=== PATIENT | male | born 1995 | race Native Hawaiian/Other Pacific Islander ===

== ENCOUNTER 2023-04-15 06:12 | Emergency (ER) | payer OTHER ==
[2023-04-15] MEDS ORDERED: ONDANSETRON 4 MG/2 ML VIAL IVP STA (06:45)
[2023-04-15] MEDS ORDERED: KETOROLAC 30 MG/ML VIAL IVP STA (06:45)
[2023-04-15] MEDS ORDERED: SODIUM CHLORIDE 0.9% 1,000 ML IV STA (06:45)
--- NOTE | 2023-04-15 06:50 | ED Physician Documentation ---
PD HPI URI - Stated complaint Stated Complaint: FEVER/HEAD PX/CHILLS - Chief complaint Chief Complaint: Heent - History obtained from History obtained from: Patient, Family - History of Present Illness Timing - onset: How many days ago (3) Timing duration: Days (3) Timing details: Gradual onset, Still present Associated symptoms: Fever, Chills, Sweats, Nasal congestion, Sore throat, Dry cough Contributing factors: Sick contact Improves by: Rest, Medication Worsened by: Activity, Breathing Similar symptoms before: Has not had sx before Recently seen: Not recently seen - Additional information Additional information: Previously well Allan Morales has developed a fever chills sore throat cough congestion and vomiting. He feels dehydrated he is having shaking chills. He has been sick for about 3 days. He feels dehydrated despite drinking fluids and he has had vomiting . Review of Systems Constitutional: reports: Fever, Chills, Myalgias, Fatigue, Sweats Eyes: denies: Decreased vision Ears: reports: Ear pain. denies: Loss of hearing Nose: reports: Rhinorrhea / runny nose, Congestion Throat: reports: Sore throat Respiratory: reports: Cough GI: reports: Nausea, Vomiting. denies: Abdominal Pain, Constipation, Diarrhea : denies: Dysuria, Frequency Skin: denies: Rash PD PAST MEDICAL HISTORY - Allergies Allergies/Adverse Reactions: Allergies Allergy/AdvReac Type Severity Reaction Status Date / Time No Known Drug Allergies Allergy Verified 04/15/23 06:21 PD ED PE NORMAL - Vitals Vital signs reviewed: Yes (normal) - General General: Alert and oriented X 3, No acute distress, Well developed/nourished, Other (flush appearing young man) - HEENT HEENT: Atraumatic, PERRL, EOMI, Other (Cerumen impaction bilaterally pharynx is with 2+ cryptic tonsils significant exudate on the right foul smell) - Neck Neck: Supple, no meningeal sign, No bony TTP - Cardiac Cardiac: RRR, No murmur - Respiratory Respiratory: No respiratory distress, Clear bilaterally - Abdomen Abdomen: Soft, Non tender - Back Back: No CVA TTP, No spinal TTP - Derm Derm: Normal color, Warm and dry, No rash - Extremities Extremities: No deformity, No edema - Neuro Neuro: Alert and oriented X 3, 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, No motor deficit, No sensory deficit, Normal speech Eye Opening: Spontaneous Motor: Obeys Commands Verbal: Oriented GCS Score: 15 - Psych Psych: Normal mood, Normal affect Results - Vitals Vitals: Vital Signs - 24 hr 04/15/23 06:17 Temperature 37.3 C Heart Rate 94 Respiratory 17 Rate Blood Pressure 134/68 H O2 Saturation 93 Oxygen O2 Source Room air Procedures - IVC sono (time) [id number] Bedside IVC sono: IVC measures (cm) (1.01), IVC collapsed c insp (cm) (complete), Dehydration (est 1+ liter deficit) PD Medical Decision Making - ED course Complexity details: considered differential, d/w patient ED course: Allan Danielle is a 27-year-old male who presented emerged part with a sore throat fever chills sweats dry cough and vomiting. He feels dehydrated and he has been drinking a lot of water. On evaluation he has cryptic exudative tonsils with a foul smell and a rapid strep is pending. I did interrogate his inferior vena cava with POCUS and found that he was dehydrated enough to use intravenous fluid and we have establish an IV line and are administering normal saline. He is given a dose of Toradol and a dose of Zofran. At shift change his care is turned over to Dr. Mchugh.
[2023-04-15] MEDS ORDERED: cefTRIAXone 1 GM in SODIUM CHLORIDE 0.9% MINIBAG 100 ML IV STA (07:01)
[2023-04-15 07:13] LABS: RAPID STREP SCREEN Negative (Negative)
--- NOTE | 2023-04-15 08:12 | ED Physician Documentation ---
ED Addendum - Addendum Addendum: 04/15/23 08:11 The patient seen after change of shift. He is comfortable at this time. He does have a slight distortion of his voice and some anterior lymph nodes. He is able to breathe and swallow normally. Suspicion for bacterial cause though his rapid strep test is negative. We will empirically treat for bacterial tonsillitis pending cultures. We will prescribe penicillin ondansetron and ibuprofen. I will give a note for today and tomorrow. He is in agreement with the plan. Diagnosis: 1. Exudative tonsillitis 2. nausea and under hydration Disposition: The patient is discharged in stable condition.
[2023-04-15 09:05] VITALS: BP 123/65
== END 2023-04-15 09:05 | disposition home or self-care (01) ==
LOC: ED 06:12
DX: J03.90 Acute tonsillitis, unspecified (principal); E86.0 Dehydration; R11.0 Nausea
CPT/HCPCS: 36415; 87070; 87430; 96365; 96375; 99284

== ENCOUNTER 2024-01-28 18:45 | Emergency (ER) | payer OTHER ==
[2024-01-28 18:56] VITALS: O2SAT 98
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
[2024-01-28] MEDS: TETANUS/DIPHTHERIA/PERTUSSIS 0.5 ML SYRINGE IM ONE (21:22)
[2024-01-28] MEDS: IBUPROFEN 600 MG TABLET PO STA (21:29)
[2024-01-28] MEDS: ACETAMINOPHEN 325 MG TABLET PO STA (21:30)
[2024-01-28 21:33] VITALS: BP 137/64
== END 2024-01-28 21:38 | disposition home or self-care (01) ==
LOC: ED 18:45
DX: S67.191A Crushing injury of left index finger, initial encounter (principal); S67.193A Crushing injury of left middle finger, initial encounter; S61.313A Laceration without foreign body of left middle finger with damage to nail, initial encounter; W23.0XXA Caught, crushed, jammed, or pinched between moving objects, initial encounter; Y92.89 Other specified places as the place of occurrence of the external cause
CPT/HCPCS: 12001; 73130; 99283; A9270